=== PATIENT | female | born 1940 | race Caucasian/White ===

== ENCOUNTER 2023-03-03 08:38 | Day surgery (SDC) | payer MEDICARE ==
[~2023-03-03 08:38] MED LIST: AMLO5 PO; ASPI81CH PO; FENO67 PO; METO25 PO; SIMV40 PO
[2023-03-05] MEDS ORDERED: Calcium Carbon500 MG PO (13:22)
[2023-03-05] MEDS ORDERED: Diprolene 0.05%15 GM TOP (13:22)
[2023-03-05] MEDS ORDERED: VITAMIN D310 MC4 PO (13:23)
== END 2023-03-06 22:52 | disposition home or self-care (01) ==
LOC: MOI US 08:38
DX: C50.412 Malignant neoplasm of upper-outer quadrant of left female breast (principal)
CPT/HCPCS: 19285; 77065; A4648

== ENCOUNTER 2023-03-07 09:32 | Day surgery (SDC) | payer MEDICARE ==
[~2023-03-07] VITALS: Ht 149.9 cm; Wt 59.1 kg
[2023-03-07] VITALS (9 sets, daily range): BP systolic 108–153; BP diastolic 58–85
[~2023-03-07 09:32] MED LIST changes: +Calcium Carbon500 MG PO; +Diprolene 0.05%15 GM TOP; +VITAMIN D310 MC4 PO
--- NOTE | 2023-03-07 11:15 | NUR ---
Ambulatory in Day Surgery History, Chart, Medications and Allergies reviewed before start of procedure.Lungs clear T/O to Auscultation. Patient confirms NPO status and agrees with scheduled surgery. Patient reports completing Chlorhexadine shower X2 prior to admission to hospital.Surgical site prepped with 2% Chlorhexidine cloth wipe. Patient States Post-Procedure ride home has been arranged.
--- NOTE | 2023-03-07 13:54 | NUR ---
REPORT RECIEVED. PT UP IN BED TOLERATING PO FLUIDS. VSS. ROOM AIR. DRESSING C/D/I. DENIES PAIN
--- NOTE | 2023-03-07 14:28 | NUR ---
Patient up to Ambulate independently. Gait steady. Discharge instructions reviewed with patient. AND Patient verbalizes understanding. Copy given to patient to take home. Dressing to procedure site clean, dry, intact with no visible drainage, swelling, erythema or bruising noted. Discharged via wheelchair to private car for ride home.
== END 2023-03-07 14:38 | disposition home or self-care (01) ==
LOC: ORSCMMR 09:32 → ORD 10:15 → ORSCMMR 10:34 → ORD 11:00 → ORSCMMR 11:00
PROVIDERS: Surgery
PROC: 0HBU0ZZ Excision of Left Breast, Open Approach (ICD-10-PCS; principal; 2023-03-07 11:00)
DX: C50.412 Malignant neoplasm of upper-outer quadrant of left female breast (principal); Z17.0 Estrogen receptor positive status [ER+]; I10 Essential (primary) hypertension; E78.00 Pure hypercholesterolemia, unspecified; Z79.899 Other long term (current) drug therapy
CPT/HCPCS: 76098; 88307; 88360; J0690; J1100; J1885; J2250; J2405; J2704; J3010; J7120